=== PATIENT | male | born 1975 | race Caucasian/White ===

== ENCOUNTER 2017-03-11 08:50 | Emergency (ER) | payer OTHER ==
[2017-03-11] MEDS: methylPREDNISolone ACETATE 80 MG/ML VIAL IM PRN (09:10)
[2017-03-11] MEDS ORDERED: methylPREDNISolone ACETATE 80 MG/ML VIAL IM ONE (09:11)
--- NOTE | 2017-03-11 09:14 | ED Physician Documentation ---
Skin Rash - HISTORIAN Historian: patient - HPI Stated Complaint: Poison Minnie Chief Complaint: Skin Rash Additional Information: out in weeds contact dermatitis-never had it before Onset: days ago (5) Timing: worse Duration: worse, persistent since Location: generalized Quality: itchy, burning Where: park - ROS CONST: no problems CVS/RESP: none EYES/ENT: none GI/: none NEURO/PSYCH: none - PAST HX Past History: none Other History: none Surgeries/Procedures: No Allergies/Adverse Reactions: Allergies Allergy/AdvReac Type Severity Reaction Status Date / Time No Known Allergies Allergy Unverified 03/11/17 09:05 Home Medications: Ambulatory Orders Medication Instructions Recorded Cetirizine HCl [Zyrtec] 10 mg PO DAILY 03/11/17 Ranitidine HCl 150 mg PO DAILY 03/11/17 Rosuvastatin Calcium [Crestor] 40 mg PO DAILY 03/11/17 amLODIPine BESYLATE [Norvasc] 5 mg PO DAILY 03/11/17 - SOCIAL HX Smoking History: non-smoker Alcohol Use: rarely Drug Use: none - FAMILY HX Family History: none - VITAL SIGNS Vital Signs: Vital Signs Temp Pulse Resp BP Pulse Ox 97 F L 68 18 144/95 99 03/11/17 08:50 03/11/17 08:50 03/11/17 08:50 03/11/17 08:50 03/11/17 08:50 - REVIEWED ASSESSMENTS Nursing Assessment Reviewed: Yes Vitals Reviewed: Yes ED Results Lab/Radiology - Orders Orders: ED Orders Category Date Time Status methylPREDNISolone ACETATE [Depo-Medrol] Med 03/11/17 09:07 Ordered 80 mg IM NOW PRN Skin Rash Physical Exam - EXAM General Appearance: mild distress Skin: warm,dry, skin rash, erythema, lesion. No: cyanotic, diaphoretic Location: generalized. No: face Character: symmetric Symptoms: weeping, crusting Extremities: nml ROM, no edema EENT: eyes nml inspection Neck: trachea midline, no swelling Respiratory: no resp distress, chest non-tender, breath sounds normal CVS: reg. rate & rhythm, heart sounds nml Neuro/Psych: oriented x3, motor nml, sensation nml, mood/affect nml Discharge Clincal Impression: contact dermatitis-poison minnie Referrals: Phuc Monterroso MD [Primary Care Provider] - 2 Days Home Medications: Ambulatory Orders Cetirizine HCl [Zyrtec] 10 mg PO DAILY 03/11/17 Ranitidine HCl 150 mg PO DAILY 03/11/17 Rosuvastatin Calcium [Crestor] 40 mg PO DAILY 03/11/17 amLODIPine BESYLATE [Norvasc] 5 mg PO DAILY 03/11/17 Condition: Good Disposition: 01 HOME, SELF-CARE Decision to Admit: NO Decision Time: 09:16
[2017-03-11 09:19] VITALS: BP 138/68
== END 2017-03-11 09:16 | disposition home or self-care (01) ==
LOC: ED 08:50
DX: L23.7 Allergic contact dermatitis due to plants, except food (principal)
CPT/HCPCS: J1040 ×2; 96372; 99283